=== PATIENT | female | born 2000 | race African-American/Black ===

== ENCOUNTER 2020-02-15 13:02 | Inpatient (IN) | payer MEDICAID ==
[2020-02-15] MEDS ORDERED: NORMAL SALINE 1000 ML 1,000 ML IV ONE ×2 (13:52→13:55)
[2020-02-15] MEDS ORDERED: METOCLOPRAMIDE HCL INJ/PF 10 MG/2 ML SDV IV ONE (13:53)
--- NOTE | 2020-02-15 13:57 | ER Document Report ---
ED Medical Screen (RME) - General Chief Complaint: Nausea/Vomiting Stated Complaint: WEAKNESS,VOMITING Time Seen by Provider: 02/15/20 13:44 Notes: Patient is a G2, P0 who presents emergency department with a chief complaint of vomiting. 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 Patient reports that she has been hospitalized multiple times for hyperemesis. States that she is unable to keep fluids and foods down. Patient concerned about the health of herself as well as the baby. Denies abdominal pain. Patient does complain of a sore throat that started within the past week after vomiting. Patient denies fever. - Related Data Allergies/Adverse Reactions: No Known Allergies Allergy (Unverified 02/15/20 13:39) Past Medical History - Social History Chew tobacco use (# tins/day): No Frequency of alcohol use: None Drug Abuse: None Physical Exam - Vital signs Vitals: Temp Pulse Resp BP 97.9 F 150 H 20 94/71 L 02/15/20 13:13 02/15/20 13:13 02/15/20 13:13 02/15/20 13:13 Course - Re-evaluation Re-evalutation: 02/15/20 13:56 Patient noted to be slightly hypotensive with a blood pressure in the 90s. Patient's heart rate 150. Saline lock, basic labs and IV fluids initiated. Patient is alert and oriented, actively vomiting bile acid. I have greeted and performed a rapid initial assessment of this patient. A comprehensive ED assessment and evaluation of the patient, analysis of test results and completion of the medical decision making process will be conducted by additional ED providers. - Vital Signs Vital signs: Temp Pulse Resp BP Pulse Ox 97.9 F 150 H 20 94/71 L 02/15/20 13:13 02/15/20 13:13 02/15/20 13:13 02/15/20 13:13
[2020-02-15 14:26] LABS: ABSOLUTE EOSINOPHILS # (AUTO) 0.1 10^3/uL (0.0-0.6); ABSOLUTE MONOCYTES (AUTO) 0.5 10^3/uL (0.1-1.4); ABSOLUTE NEUT (AUTO) 6.5 10^3/uL (1.7-8.2); BASOPHILS % (AUTO) 0.6 % (0-2); EOSINOPHILS % (AUTO) 0.9 % (0-6); HEMATOCRIT 36.5 % (36.0-47.0); HEMOGLOBIN 13.2 g/dL (12.0-15.5); LYMPHOCYTES % (AUTO) 11.9 % (13-45); MEAN CORPUSCULAR HEMOGLOBIN 30.3 pg (27.0-33.4); MEAN CORPUSCULAR HGB CONC 36.2 g/dL (32.0-36.0); MEAN CORPUSCULAR VOLUME 84 fl (80-97); MONOCYTES % (AUTO) 6.6 % (3-13); PLATELET COUNT 465 10^3/uL (150-450); RED BLOOD COUNT 4.36 10^6/uL (3.72-5.28); RED CELL DISTRIBUTION WIDTH 14.9 % (11.5-14.0); TOTAL CELLS COUNTED % (AUTO) 100 %; WHITE BLOOD COUNT 8.1 10^3/uL (4.0-10.5)
[2020-02-15 14:27] LABS: APPEARANCE,URINE CLOUDY; BILIRUBIN,URINE SMALL (NEGATIVE); COLOR,URINE ORANGE; GLUCOSE, URINE NEGATIVE (NEGATIVE); KETONES,URINE 20 mg/dL (NEGATIVE); LEUKOCYTE ESTERASE,URINE SMALL (NEGATIVE); NITRITE,URINE NEGATIVE (NEGATIVE); PROTEIN,URINE 100 mg/dL (NEGATIVE); URINE SPECIFIC GRAVITY 1.028
[2020-02-15 14:42] LABS: ALBUMIN 4.9 g/dL (3.5-5.0); ALKALINE PHOSPHATASE 86 U/L (38-126); ANION GAP 13 (5-19); ASPARTATE AMINO TRANSFERASE 281 U/L (14-36); BILIRUBIN,DIRECT 0.6 mg/dL (0.0-0.4); BILIRUBIN,TOTAL 1.5 mg/dL (0.2-1.3); BLOOD UREA NITROGEN 21 mg/dL (7-20); CALCIUM 10.6 mg/dL (8.4-10.2); CARBON DIOXIDE 31 mmol/L (22-30); CHLORIDE 87 mmol/L (98-107); GLUCOSE 153 mg/dL (75-110); POTASSIUM 3.6 mmol/L (3.6-5.0); TOTAL PROTEIN 8.5 g/dL (6.3-8.2)
--- NOTE | 2020-02-15 17:40 | RADIOLOGY REPORT (SQ) ---
EXAM DESCRIPTION: U/S ABDOMEN LIMITED W/O DOP IMAGES COMPLETED DATE/TIME: 02/15/2020 5:23 pm REASON FOR STUDY: ruq pain COMPARISON: None. TECHNIQUE: Dynamic and static grayscale images acquired of the abdomen and recorded on PACS. Additio nal selected color Doppler and spectral images recorded. LIMITATIONS: None. FINDINGS: PANCREAS: The head and body of the pancreas are normal echogenicity. Tail is obscured by overlying bowel gas. LIVER: The liver measures 13.0 cm in length, normal size. Echotexture normal. LIVER VASCULATURE: Normal directional flow of the main portal vein and hepatic veins. GALLBLADDER: Gallstones and some gallbladder sludge. The gallbladder wall measures 2.0 mm, normal w all thickness. No pericholecystic fluid. ULTRASOUND-DETECTED HOPSON'S SIGN: Negative. INTRAHEPATIC DUCTS AND COMMON DUCT: CBD measures 2.0 mm in diameter, normal. The intrahepatic ducts normal caliber. No filling defects. INFERIOR VENA CAVA: Normal flow. AORTA: No aneurysm. RIGHT KIDNEY: The right kidney measures 8.9 cmin length which may be underestimated due to the fact that the patient is . Normal echogenicity. No solid or suspicious masses. No hydronephrosis. No calcifications. PERITONEAL AND RIGHT PLEURAL SPACE: No ascites or effusions. OTHER: The patient is (according to clinical history the patient is 4 months ). Fe lanre heart activity is identified. heart rate 160 beats per minute. IMPRESSION: 1. Gallstones and some gallbladder sludge. 2. No evidence of biliary obstruction. 3. The tail of the pancreas is not visualized due to overlying bowel gas. 4. Incidentally, the patient is . heart activity is noted. TECHNICAL DOCUMENTATION: JOB ID: [id number] 2010 [employer]- All Rights Reserved Reading location - IP/workstation name: [email or web address]
--- NOTE | 2020-02-15 18:13 | ER Document Report ---
ED General - General Chief Complaint: Nausea/Vomiting Stated Complaint: WEAKNESS,VOMITING Time Seen by Provider: 02/15/20 13:44 Mode of Arrival: Ambulatory Information source: Patient - HPI Notes: Patient comes in complaining of severe nausea and vomiting with some chills. She states she has had this for several days. She states she is approximate 4 months and has had significant trouble with nausea and vomiting throughout this . She states she has had to be admitted to the hospital several times for it. 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 She states today however she had an appointment at [facility] but was was late to the appointment and they would not see her. Therefore she came here. Patient denies any significant pain. She has had no vaginal bleeding or discharge. Patient states that her nausea and vomiting have been relatively constant. Nothing makes it better or worse. There is obviously no significant radiation of the symptoms. They have been severe. - Related Data Allergies/Adverse Reactions: No Known Allergies Allergy (Unverified 02/15/20 13:39) Past Medical History - General Information source: Patient - Social History Smoking Status: Never Smoker Chew tobacco use (# tins/day): No Frequency of alcohol use: None Drug Abuse: None Family History: Reviewed & Not Pertinent Patient has homicidal ideation: No Review of Systems - Review of Systems Constitutional: Chills, Weakness. denies: Fever Cardiovascular: denies: Chest pain, Palpitations Respiratory: denies: Cough, Short of breath -: Yes All other systems reviewed and negative Physical Exam - Vital signs Vitals: Temp Pulse Resp BP 97.9 F 150 H 20 94/71 L 02/15/20 13:13 02/15/20 13:13 02/15/20 13:13 02/15/20 13:13 Interpretation: Tachycardic - General General appearance: Appears well, Alert - HEENT Head: Normocephalic, Atraumatic Eyes: Normal Pupils: PERRL - Respiratory Respiratory status: No respiratory distress Chest status: Nontender Breath sounds: Normal Chest palpation: Normal - Cardiovascular Rhythm: Tachycardia Heart sounds: Normal auscultation Murmur: No - Abdominal Inspection: Normal Distension: No distension Bowel sounds: Normal Tenderness: Nontender Organomegaly: No organomegaly - Back Back: Normal, Nontender - Extremities General upper extremity: Normal inspection, Nontender, Normal color, Normal ROM, Normal temperature General lower extremity: Normal inspection, Nontender, Normal color, Normal ROM, Normal temperature, Normal weight bearing. No: Madelyn's sign - Neurological Neuro grossly intact: Yes Cognition: Normal Orientation: AAOx4 Almond Coma Scale Eye Opening: Spontaneous Mary Coma Scale Verbal: Oriented Almond Coma Scale Motor: Obeys Commands Mary Coma Scale Total: 15 Speech: Normal Motor strength normal: LUE, RUE, LLE, RLE Sensory: Normal - Psychological Associated symptoms: Normal affect, Normal mood - Skin Skin Temperature: Warm Skin Moisture: Dry Skin Color: Normal Course - Re-evaluation Re-evalutation: 02/15/20 18:12 Patient presents with severe nausea and vomiting but no significant abdominal pain. She does appear to have hyperemesis and does not feel somewhat better after fluids and antiemetics. Her vital signs also improved after this. She does have some evidence of a nonspecific hepatitis by laboratories and an ultrasound does show some sludge and stones but no evidence of cholecystitis. It does seem possible the patient is having some biliary colic secondary to this however. She does not have any urinary tract symptoms but she does have positive leukocyte esterase and 12 white cells in her urine. I discussed this with Dr. Granger at this time we will give her initial dose of Rocephin here in the emergency department. - Vital Signs Vital signs: Temp Pulse Resp BP Pulse Ox 97.9 F 108 H 14 105/65 100 02/15/20 13:13 02/15/20 17:26 02/15/20 17:26 02/15/20 17:26 02/15/20 17:26 - Laboratory Result Diagrams: 02/15/20 14:00 02/15/20 14:00 Laboratory results interpreted by me: 02/15/20 02/15/20 02/15/20 14:00 14:00 14:00 MCHC 36.2 H RDW 14.9 H Plt Count 465 H Lymph % (Auto) 11.9 L Seg Neutrophils % 80.0 H Sodium 130.9 L Chloride 87 L Carbon Dioxide 31 H BUN 21 H Glucose 153 H Calcium 10.6 H Total Bilirubin 1.5 H Direct Bilirubin 0.6 H AST 281 H ALT 517 H Total Protein 8.5 H Urine Protein 100 H Urine Ketones 20 H Urine Blood MODERATE H Urine Bilirubin SMALL H Urine Urobilinogen 4.0 H Ur Leukocyte Esterase SMALL H Urine Ascorbic Acid 40 H - Diagnostic Test Radiology reviewed: Image reviewed, Reports reviewed Discharge - Discharge Clinical Impression: Hyperemesis arising during UTI (urinary tract infection) during Qualifiers: Trimester: second trimester Qualified Code(s): O23.42 - Unspecified infection of urinary tract in , second trimester Condition: Stable Disposition: ADMITTED INPATIENT Admitting Provider: [facility] Unit Admitted: Labor and Delivery
[2020-02-15] MEDS ORDERED: CEFTRIAXONE 1 GM/D5W RTU 1 GM/50 ML RTUPB IV ONE (18:14)
[2020-02-15] MEDS: RINGERS SOLUTION,LACTATED 1,000 ML IV PRN (20:45)
[2020-02-15] MEDS ORDERED: PROMETHAZINE HCL INJ 25 MG/1 ML VIAL IV PRN (21:10)
[2020-02-15] MEDS ORDERED: ONDANSETRON HCL INJ/PF 4 MG/2 ML SDV IV PRN (21:10)
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
[2020-02-15 22:57] LABS: URINE AMPHETAMINES SCREEN NEGATIVE; URINE BARBITURATES SCREEN NEGATIVE; URINE BENZODIAZEPINES SCREEN NEGATIVE; URINE COCAINE SCREEN NEGATIVE; URINE MARIJUANA (THC) SCREEN NEGATIVE; URINE METHADONE SCREEN NEGATIVE; URINE PHENCYCLIDINE SCREEN NEGATIVE
--- NOTE | 2020-02-15 23:40 | RADIOLOGY REPORT (SQ) ---
US PELVIS HISTORY: Hyperemesis. COMPARISON: None. TECHNIQUE: Grayscale, color Doppler, and spectral Doppler ultrasound images of the pelvis were obtained. FINDINGS: There is a single live intrauterine gestation in breech presentation. The heart rate is 162 bpm. The cervix is closed and measures 3.8 cm. Largest vertical pocket is 4.8 cm. The placenta is anterior and low lying. Estimated gestational age is 17 weeks 5 days. weight is 204 g +/- 30 g. IMPRESSION: Single live IUP as above.
[2020-02-16 00:12] LABS: CHLAM PCR DETECTED (NOT DETECT)
[2020-02-16] MEDS ORDERED: AZITHROMYCIN 250 MG TABLET PO ONE (01:00)
[2020-02-16] MEDS: RINGERS SOLUTION,LACTATED 1,000 ML IV PRN (07:44)
[2020-02-16] MEDS ORDERED: BISACODYL 10 MG SUPP.RECT PR ONE (08:00)
[2020-02-16 09:00] LABS: HEMATOCRIT 30.3 % (36.0-47.0); MEAN CORPUSCULAR HEMOGLOBIN 28.7 pg (27.0-33.4); MEAN CORPUSCULAR HGB CONC 33.3 g/dL (32.0-36.0); MEAN CORPUSCULAR VOLUME 86 fl (80-97); PLATELET COUNT 363 10^3/uL (150-450); RED BLOOD COUNT 3.51 10^6/uL (3.72-5.28); RED CELL DISTRIBUTION WIDTH 14.4 % (11.5-14.0); WHITE BLOOD COUNT 8.8 10^3/uL (4.0-10.5)
[2020-02-16 09:09] LABS: HEMOGLOBIN 10.1 g/dL (12.0-15.5)
[2020-02-16 09:36] LABS: ALBUMIN 3.4 g/dL (3.5-5.0); ALKALINE PHOSPHATASE 66 U/L (38-126); ANION GAP 8 (5-19); ASPARTATE AMINO TRANSFERASE 165 U/L (14-36); BILIRUBIN,DIRECT 0.3 mg/dL (0.0-0.4); BILIRUBIN,TOTAL 1.1 mg/dL (0.2-1.3); BLOOD UREA NITROGEN 10 mg/dL (7-20); CALCIUM 8.9 mg/dL (8.4-10.2); CARBON DIOXIDE 29 mmol/L (22-30); CHLORIDE 95 mmol/L (98-107); GLUCOSE 108 mg/dL (75-110); POTASSIUM 3.1 mmol/L (3.6-5.0); TOTAL PROTEIN 6.2 g/dL (6.3-8.2)
[2020-02-16] MEDS ORDERED: ACETAMINOPHEN 325 MG TABLET PO ONE (15:46)
[2020-02-16] MEDS ORDERED: POTASSIUM CHLORIDE 20 MEQ PACKET PO ONE (18:30)
--- NOTE | 2020-02-16 18:51 | PDOC PROGRESS REPORT ---
Subjective Progress Note for:: 02/16/20 Subjective:: n/v of pregnacy, hypokalemia, poss UTI, Chlamydia Reason For Visit: HYPEREMESIS DURING ,UTI DURING Physical Exam - Physical Exam Vital Signs: Temp Pulse Resp BP Pulse Ox 98.7 F 101 H 18 113/82 100 02/16/20 16:22 02/16/20 16:22 02/16/20 16:22 02/16/20 16:22 02/16/20 16:22 Intake & Output 02/15/20 02/16/20 02/17/20 06:59 06:59 06:59 Intake Total 3720 616 Output Total 100 Balance 3720 516 Weight 58.3 kg General appearance: PRESENT: no acute distress, well-developed, well-nourished Eye exam: PRESENT: conjunctiva pink, EOMI, PERRLA. ABSENT: scleral icterus Cardiovascular exam: PRESENT: RRR. ABSENT: diastolic murmur, rubs, systolic murmur Pulses: PRESENT: normal dorsalis pedis pul, +2 pedal pulses bilateral GI/Abdominal exam: PRESENT: normal bowel sounds, soft. ABSENT: distended, guarding, mass, organolmegaly, rebound, tenderness Rectal exam: PRESENT: deferred Extremities exam: PRESENT: full ROM. ABSENT: calf tenderness, clubbing, pedal edema Neurological exam: PRESENT: alert, awake, oriented to person, oriented to place, oriented to time, oriented to situation, CN II-XII grossly intact. ABSENT: motor sensory deficit Psychiatric exam: PRESENT: appropriate affect, normal mood. ABSENT: homicidal ideation, suicidal ideation Skin exam: PRESENT: dry, intact, warm. ABSENT: cyanosis, rash Result Laboratory Results: 02/16/20 08:40 02/16/20 08:40 02/15/20 02/15/20 02/16/20 21:29 22:25 08:40 WBC 8.8 RBC 3.51 L Hgb 10.1 L D Hct 30.3 L MCV 86 MCH 28.7 MCHC 33.3 RDW 14.4 H Plt Count 363 Sodium Potassium Chloride Carbon Dioxide Anion Gap BUN Creatinine Est GFR ( Amer) Glucose Calcium Total Bilirubin AST Alkaline Phosphatase Total Protein Albumin Amylase Lipase TSH 1.28 Blood Type A POSITIVE Antibody Screen NEGATIVE 02/16/20 02/16/20 08:40 08:40 WBC RBC Hgb Hct MCV MCH MCHC RDW Plt Count Sodium 131.9 L Potassium 3.1 L Chloride 95 L Carbon Dioxide 29 Anion Gap 8 BUN 10 Creatinine 0.81 Est GFR ( Amer) > 60 Glucose 108 Calcium 8.9 Total Bilirubin 1.1 AST 165 H Alkaline Phosphatase 66 Total Protein 6.2 L Albumin 3.4 L Amylase 77 Lipase 43.4 TSH Blood Type Antibody Screen Impressions: Obstetrics Ultrasound 02/15/20 00:00 IMPRESSION: Single live IUP as above. Abdomen Ultrasound 02/15/20 16:22 IMPRESSION: 1. Gallstones and some gallbladder sludge. 2. No evidence of biliary obstruction. 3. The tail of the pancreas is not visualized due to overlying bowel gas. 4. Incidentally, the patient is . heart activity is noted. Assessment & Plan - Diagnosis (1) Chlamydia infection affecting Is this a current diagnosis for this admission?: Yes Plan: tx with azithro. Will need JAN in 4wks and partner will need treatment. (2) Hyperemesis arising during Is this a current diagnosis for this admission?: Yes Plan: doing well on med cocktail lost iv today tolerated clears today. Advance diet to regular. on po meds now. (3) Liver and biliary tract disorders in , second trimester Is this a current diagnosis for this admission?: Yes Plan: possibly due to n/v. trending down. Hepatitis panel. ' repeat labs in am. (4) UTI (urinary tract infection) during Qualifiers: Trimester: second trimester Qualified Code(s): O23.42 - Unspecified infection of urinary tract in , second trimester Is this a current diagnosis for this admission?: Yes Plan: treated (5) Hypokalemia Is this a current diagnosis for this admission?: Yes Plan: treated with po potassium. No symptoms. [place] labs in am. - Time Time Spent with patient: Less than 15 minutes Medications reviewed and adjusted accordingly: Yes Anticipated discharge: Home Within: within 48 hours - Inpatient Certification Based on my medical assessment, after consideration of the patient's comorbidities, presenting symptoms, or acuity I expect that the services needed warrant INPATIENT care.: Yes I certify that my determination is in accordance with my understanding of [facility]'s requirements for reasonable and necessary INPATIENT services [42 CFR 412.3e].: Yes Medical Necessity: Failure to Improve With Outpatient Therapy, Need Close Monitoring Due to Risk of Patient Decompensation, Need For IV Fluids Post Hospital Care: D/C Search Advertising Strategist Documentation
[2020-02-17 07:53] VITALS: BP 117/73
[2020-02-17 08:37] LABS: HEPATITS B SURFACE ANTIGEN Negative (Negative)
[2020-02-17 08:42] LABS: HEPATITIS C VIRUS ANTIBODY 0.1 s/co ratio (0.0-0.9)
--- NOTE | 2020-02-17 09:15 | PDOC PROGRESS REPORT ---
Subjective-OB Progress Note for:: 02/17/20 Subjective: feeling alot better, ready to go home, lives in [place], no nausea Physical Exam (OB) Vital Signs: Temp Pulse Resp BP Pulse Ox 98.4 F 106 H 16 117/73 100 02/17/20 07:35 02/17/20 07:35 02/17/20 07:35 02/17/20 07:35 02/17/20 07:35 Intake & Output 02/16/20 02/17/20 02/18/20 06:59 06:59 06:59 Intake Total 3720 616 Output Total 100 Balance 3720 516 Weight 58.3 kg - Abdomen Description: Soft, Round Objective-Diagnostic Laboratory: 02/16/20 08:40 02/16/20 02/16/20 08:40 08:40 Sodium 131.9 L Potassium 3.1 L Chloride 95 L Carbon Dioxide 29 Anion Gap 8 BUN 10 Creatinine 0.81 Est GFR ( Amer) > 60 Glucose 108 Calcium 8.9 Total Bilirubin 1.1 AST 165 H Alkaline Phosphatase 66 Total Protein 6.2 L Albumin 3.4 L Amylase 77 Lipase 43.4 Assessment and Plan(PN) - Assessment and Plan (1) Hypokalemia Is this a current diagnosis for this admission?: Yes (2) Chlamydia infection affecting Qualifiers: Trimester: unspecified trimester Qualified Code(s): O98.819 - Other ma ternal infectious and parasitic diseases complicating , unspecified trimester; A74.9 - Chlamydial infection, unspecified Is this a current diagnosis for this admission?: Yes (3) Hyperemesis arising during Is this a current diagnosis for this admission?: Yes (4) UTI (urinary tract infection) during Qualifiers: Trimester: second trimester Qualified Code(s): O23.42 - Unspecified infection of urinary tract in , second trimester Is this a current diagnosis for this admission?: Yes (5) Hyponatremia Is this a current diagnosis for this admission?: Yes (6) Hyperbilirubinemia Is this a current diagnosis for this admission?: Yes (7) Liver and biliary tract disorders in , second trimester Is this a current diagnosis for this admission?: Yes - Time Spent with Patient Time with patient: Less than 15 minutes Medications reviewed and adjusted accordingly: Yes - Disposition Anticipated Discharge: Home Within: within 24 hours
[2020-02-17 09:22] LABS: ALBUMIN 3.6 g/dL (3.5-5.0); ALKALINE PHOSPHATASE 62 U/L (38-126); ANION GAP 10 (5-19); ASPARTATE AMINO TRANSFERASE 111 U/L (14-36); BILIRUBIN,DIRECT 0.1 mg/dL (0.0-0.4); BILIRUBIN,TOTAL 0.5 mg/dL (0.2-1.3); BLOOD UREA NITROGEN 10 mg/dL (7-20); CALCIUM 9.3 mg/dL (8.4-10.2); CARBON DIOXIDE 25 mmol/L (22-30); CHLORIDE 98 mmol/L (98-107); GLUCOSE 88 mg/dL (75-110); POTASSIUM 3.4 mmol/L (3.6-5.0); TOTAL PROTEIN 6.4 g/dL (6.3-8.2)
--- NOTE | 2020-02-17 09:22 | PDOC DISCHARGE SUMMARY ---
Impression - Admit/DC Date/PCP Admission Date/Primary Care Provider: 02/15/20 19:08 GRIFFIN PATINO MD Discharge Date: 02/17/20 - Discharge Diagnosis (1) Hypokalemia Is this a current diagnosis for this admission?: Yes (2) Chlamydia infection affecting Is this a current diagnosis for this admission?: Yes (3) Hyperemesis arising during Is this a current diagnosis for this admission?: Yes (4) UTI (urinary tract infection) during Is this a current diagnosis for this admission?: Yes (5) Hyponatremia Is this a current diagnosis for this admission?: Yes (6) Hyperbilirubinemia Is this a current diagnosis for this admission?: Yes (7) Liver and biliary tract disorders in , second trimester Is this a current diagnosis for this admission?: Yes - Additional Information Discharge Diet: As Tolerated, Regular Discharge Activity: Activity As Tolerated Referrals: GRIFFIN PATINO MD [Primary Care Provider] - (f/u in [place]) History of Present Illiness History of Present Illness: LINA JONES is a 19 year old female Hospital Course Hospital Course: improved after fluids Physical Exam - Physical Exam Vital Signs: Temp Pulse Resp BP Pulse Ox 98.4 F 106 H 16 117/73 100 02/17/20 07:35 02/17/20 07:35 02/17/20 07:35 02/17/20 07:35 02/17/20 07:35 Intake & Output 02/16/20 02/17/20 02/18/20 06:59 06:59 06:59 Intake Total 3720 616 Output Total 100 Balance 3720 516 Weight 58.3 kg Results Laboratory Results: WBC 8.8 10^3/uL (4.0-10.5) 02/16/20 08:40 RBC 3.51 10^6/uL (3.72-5.28) L 02/16/20 08:40 Hgb 10.1 g/dL (12.0-15.5) L D 02/16/20 08:40 Hct 30.3 % (36.0-47.0) L 02/16/20 08:40 MCV 86 fl (80-97) 02/16/20 08:40 MCH 28.7 pg (27.0-33.4) 02/16/20 08:40 MCHC 33.3 g/dL (32.0-36.0) 02/16/20 08:40 RDW 14.4 % (11.5-14.0) H 02/16/20 08:40 Plt Count 363 10^3/uL (150-450) 02/16/20 08:40 Lymph % (Auto) 11.9 % (13-45) L 02/15/20 14:00 [place] % (Auto) 6.6 % (3-13) 02/15/20 14:00 Eos % (Auto) 0.9 % (0-6) 02/15/20 14:00 Baso % (Auto) 0.6 % (0-2) 02/15/20 14:00 Absolute Neuts (auto) 6.5 10^3/uL (1.7-8.2) 02/15/20 14:00 Absolute Lymphs (auto) 1.0 10^3/uL (0.5-4.7) 02/15/20 14:00 Absolute Monos (auto) 0.5 10^3/uL (0.1-1.4) 02/15/20 14:00 Absolute Eos (auto) 0.1 10^3/uL (0.0-0.6) 02/15/20 14:00 Absolute Basos (auto) 0.0 10^3/uL (0.0-0.2) 02/15/20 14:00 Seg Neutrophils % 80.0 % (42-78) H 02/15/20 14:00 Sodium 131.9 mmol/L (137-145) L 02/16/20 08:40 Potassium 3.1 mmol/L (3.6-5.0) L 02/16/20 08:40 Chloride 95 mmol/L (98-107) L 02/16/20 08:40 Carbon Dioxide 29 mmol/L (22-30) 02/16/20 08:40 Anion Gap 8 (5-19) 02/16/20 08:40 BUN 10 mg/dL (7-20) 02/16/20 08:40 Creatinine 0.81 mg/dL (0.52-1.25) 02/16/20 08:40 Est GFR ( Amer) > 60 (>60) 02/16/20 08:40 Est GFR (MDRD) Non-Af > 60 (>60) 02/16/20 08:40 Glucose 108 mg/dL (75-110) 02/16/20 08:40 Calcium 8.9 mg/dL (8.4-10.2) 02/16/20 08:40 Total Bilirubin 1.1 mg/dL (0.2-1.3) 02/16/20 08:40 Direct Bilirubin 0.3 mg/dL (0.0-0.4) 02/16/20 08:40 Neonat Total Bilirubin Not Reportable 02/16/20 08:40 Neonat Direct Bilirubin Not Reportable 02/16/20 08:40 Neonat Indirect Bili Not Reportable 02/16/20 08:40 AST 165 U/L (14-36) H 02/16/20 08:40 ALT 335 U/L (<35) H 02/16/20 08:40 Alkaline Phosphatase 66 U/L (38-126) 02/16/20 08:40 Total Protein 6.2 g/dL (6.3-8.2) L 02/16/20 08:40 Albumin 3.4 g/dL (3.5-5.0) L 02/16/20 08:40 Amylase 77 U/L (30-110) 02/16/20 08:40 Lipase 43.4 U/L (23-300) 02/16/20 08:40 TSH 1.28 uIU/mL (0.47-4.68) 02/15/20 21:29 Urine Color ORANGE 02/15/20 14:00 Urine Appearance CLOUDY 02/15/20 14:00 Urine pH 5.0 (5.0-9.0) 02/15/20 14:00 Ur Specific [place] 1.028 02/15/20 14:00 Urine Protein 100 mg/dL (NEGATIVE) H 02/15/20 14:00 Urine Glucose (UA) NEGATIVE mg/dL (NEGATIVE) 02/15/20 14:00 Urine Ketones 20 mg/dL (NEGATIVE) H 02/15/20 14:00 Urine Blood MODERATE (NEGATIVE) H 02/15/20 14:00 Urine Nitrite NEGATIVE (NEGATIVE) 02/15/20 14:00 Urine Bilirubin SMALL (NEGATIVE) H 02/15/20 14:00 Urine Urobilinogen 4.0 mg/dL (<2.0) H 02/15/20 14:00 Ur Leukocyte Esterase SMALL (NEGATIVE) H 02/15/20 14:00 Urine WBC (Auto) 12 /HPF 02/15/20 14:00 Urine RBC (Auto) 24 /HPF 02/15/20 14:00 U Hyaline Cast (Auto) 9 /LPF 02/15/20 14:00 Urine Bacteria (Auto) TRACE /HPF 02/15/20 14:00 Squamous Epi Cells Auto 5 /HPF 02/15/20 14:00 Urine Mucus (Auto) MANY /LPF 02/15/20 14:00 Urine Ascorbic Acid 40 (NEGATIVE) H 02/15/20 14:00 Urine Opiates Screen NEGATIVE 02/15/20 14:00 Urine Methadone Screen NEGATIVE 02/15/20 14:00 Ur Barbiturates Screen NEGATIVE 02/15/20 14:00 Ur Phencyclidine Scrn NEGATIVE 02/15/20 14:00 Ur Amphetamines Screen NEGATIVE 02/15/20 14:00 U Benzodiazepines Scrn NEGATIVE 02/15/20 14:00 Urine Cocaine Screen NEGATIVE 02/15/20 14:00 U Marijuana (THC) Screen NEGATIVE 02/15/20 14:00 RPR NONREACTIVE (NONREACTIVE) 02/15/20 21:55 Chlamydia DNA (PCR) DETECTED (NOT DETECT) H 02/15/20 22:00 Hepatitis A IgM Ab Negative (Negative) 02/15/20 22:25 Hep Bs Antigen Negative (Negative) 02/15/20 22:25 Hep B Core IgM Ab Negative (Negative) 02/15/20 22:25 Hepatitis C Antibody 0.1 s/co ratio (0.0-0.9) 02/15/20 22:25 HIV 1&2 Antibody NEGATIVE (NEGATIVE) 02/15/20 21:55 N.gonorrhoeae DNA (PCR) NOT DETECTED (NOT DETECT) 02/15/20 22:00 Rubella IgG Antibody 2.98 IU/mL 02/15/20 21:55 Rubella IgG Ab Interp NEGATIVE 02/15/20 21:55 Blood Type A POSITIVE 02/15/20 22:25 Antibody Screen NEGATIVE 02/15/20 22:25 Impressions: Obstetrics Ultrasound 02/15/20 00:00 IMPRESSION: Single live IUP as above. Abdomen Ultrasound 02/15/20 16:22 IMPRESSION: 1. Gallstones and some gallbladder sludge. 2. No evidence of biliary obstruction. 3. The tail of the pancreas is not visualized due to overlying bowel gas. 4. Incidentally, the patient is . heart activity is noted. Plan Health Concerns: nausea and vomiting Plan of Treatment: discharge home, f/u with dr. gildardo Valdez Goals: no further emesis Time Spent: Less than 30 Minutes Stroke Is this a Stroke Patient?: No Stroke Pt being discharged on Anti-thrombolytic therapy?: No Reason(s) for not prescribing Anti-thrombolytic therapy:: Not indicated Acute Heart Failure - Is this a Heart Failure Patient?: No Follow-up Appointment scheduled within 7 days?: No, document reason
[2020-02-17] MEDS ORDERED: POTASSIUM CHLORIDE 10 MEQ TABLET.ER PO SCH (10:00)
== END 2020-02-17 10:17 | disposition home or self-care (01) | DRG 832 ==
LOC: ER 13:02 → EH 19:08 → 2S 20:06
PROVIDERS: ADMIT Obstetrics & Gynecology; ATTEND Obstetrics & Gynecology
DX: O21.1 Hyperemesis gravidarum with metabolic disturbance (principal); O98.812 Other maternal infectious and parasitic diseases complicating pregnancy, second trimester; O23.42 Unspecified infection of urinary tract in pregnancy, second trimester; O26.612 Liver and biliary tract disorders in pregnancy, second trimester; K76.9 Liver disease, unspecified; A74.9 Chlamydial infection, unspecified
CPT/HCPCS: 36415; 76705; 76815; 80053; 80074; 80307; 81001; 82150; 83690; 84443; 85025; 85027; 86592; 86701; 86762; 86850; 86900; 86901; 87491; 87591; 96361; 96374; 99285; J0696; J2405; J2765; J3490; J7030; J7120

== ENCOUNTER 2020-06-30 00:28 | Outpatient (CLI) | payer MEDICAID ==
[2020-06-30 02:07] LABS: APPEARANCE,URINE CLOUDY; BILIRUBIN,URINE NEGATIVE (NEGATIVE); COLOR,URINE AMBER; GLUCOSE, URINE NEGATIVE (NEGATIVE); KETONES,URINE TRACE mg/dL (NEGATIVE); LEUKOCYTE ESTERASE,URINE LARGE (NEGATIVE); NITRITE,URINE NEGATIVE (NEGATIVE); PROTEIN,URINE 100 mg/dL (NEGATIVE); URINE SPECIFIC GRAVITY 1.021
--- NOTE | 2020-06-30 02:21 | Non Stress Test Report ---
Non Stress Test Datetime Report Generated by CPN: 06/30/2020 02:20 DEMOGRAPHIC EGA NST: 37.1 INDICATION Indication for Study (NST) Other: here for spitting brownish sputum VITAL SIGNS Temperature - NST: 98.5 RESP - NST: 16 MONITORING Monitor Explained: Monitor Explained; Test Explained; Patient Verbalized Understanding Time on Monitor: 06/30/2020 01:00 Time off Monitor: 06/30/2020 02:16 NST Duration: 76 NST INTERVENTIONS NST Interventions: PO Hydration; Reposition Patient Physician Notified NST: Dr Chavez BABY A: [id number] BABY A Movement : Present Contraction Frequency : rare FHR Baseline : 115 Accelerations : 15X15 Decelerations : None Variability : Moderate 6-25bpm NST Review: Meets Criteria for Reactive NST NST Review and Verified By : Uzair Cabrera RN NST Results: Reactive NST REPORT Report Trigger: Send Report
[2020-06-30 02:35] LABS: URINE AMPHETAMINES SCREEN NEGATIVE; URINE BARBITURATES SCREEN NEGATIVE; URINE BENZODIAZEPINES SCREEN NEGATIVE; URINE COCAINE SCREEN NEGATIVE; URINE MARIJUANA (THC) SCREEN NEGATIVE; URINE METHADONE SCREEN NEGATIVE; URINE PHENCYCLIDINE SCREEN NEGATIVE
== END 2020-06-30 02:38 | disposition home or self-care (01) ==
LOC: LC 00:28
PROVIDERS: ATTEND Obstetrics & Gynecology Gynecology
DX: O26.893 Other specified pregnancy related conditions, third trimester (principal); R04.2 Hemoptysis; Z3A.37 37 weeks gestation of pregnancy
CPT/HCPCS: 59025; 80307; 81005